=== PATIENT | female | born 1940 | race Caucasian/White ===

== ENCOUNTER 2021-01-24 09:51 | Emergency (ER) | payer MEDICARE | END 2021-01-24 11:17 | disposition home or self-care (01) | LOC: MADERS 09:51 | DX: B37.3 Candidiasis of vulva and vagina (principal); K21.9 Gastro-esophageal reflux disease without esophagitis; I10 Essential (primary) hypertension; M19.90 Unspecified osteoarthritis, unspecified site; Z86.73 Personal history of transient ischemic attack (TIA), and cerebral infarction without residual deficits; Z79.02 Long term (current) use of antithrombotics/antiplatelets; Z79.899 Other long term (current) drug therapy | CPT/HCPCS: 99283 ==

== ENCOUNTER 2021-03-18 15:09 | Outpatient (CLI) | payer MEDICARE | END 2021-03-18 15:10 | disposition home or self-care (01) | LOC: MADRAD 15:09 | PROVIDERS: ATTEND Family Medicine | DX: S80.01XA Contusion of right knee, initial encounter (principal) ==

== ENCOUNTER 2024-01-12 22:34 | Emergency (ER) | payer OTHER, MEDICARE ==
[2024-01-12 23:23] LABS: INR-International Normal Ratio 0.9; PTT 35.8 sec (22.9-36.1); Prothrombin Time 12.3 sec (12.0-14.7)
[2024-01-12 23:27] LABS: Band 2 % (5-11); Eosinophils 1 % (0-10); Hematocrit 40.1 % (36.0-47.0); Hemoglobin 12.8 g/dL (12.0-16.0); Lymphocytes 39 % (21-51); MDiff Complete? YES; Mean Corpuscular HGB CONC 31.9 g/dL (32.0-36.0); Mean Corpuscular Hemoglobin 30.9 pg (27.0-31.0); Monocytes 4 % (0-10); Neutrophil 54 % (42-75); Platelet Count 316 10x3/uL (130-400); RBC Distribution Width 11.7 % (11.5-14.5); Red Blood Cell (RBC) Count 4.13 mill/uL (4.20-5.40); White Blood Cell (WBC) Count 9.2 10x3/uL (4.8-10.8)
[2024-01-13] MEDS ORDERED: Tranexamic Acid 1,000 MG/10 ML VIAL ONE (00:15)
== END 2024-01-13 01:05 | disposition home or self-care (01) ==
LOC: MADERS 22:34
DX: K91.841 Postprocedural hemorrhage of a digestive system organ or structure following other procedure (principal); I10 Essential (primary) hypertension
CPT/HCPCS: 36415; 85025; 85610; 85730; 99283